=== PATIENT | male | born 1940 | race Caucasian/White ===

== ENCOUNTER 2019-10-23 04:28 | Emergency (ER) | payer OTHER, MEDICARE ==
[2019-10-23 04:43] VITALS: BP 149/77
[2019-10-23] MEDS ORDERED: CIPROFLOXACIN HCL/DEXAMETH OTIC DROP 7.5 ML AS ONE (05:31)
--- NOTE | 2019-10-23 05:41 | ER Document Report ---
HPI - HPI Pain Level: 2 Context: Patient is a 79-year-old male that comes emergency department for chief complaint of left ear pain. Symptoms started 2 days ago, he states it feels swollen and it is harder to hear out of than usual. He states that he does wear hearing aid in the same year. He denies this happening frequently. He denies drainage from the ear, headache, vomiting, fever, congestion, or any other complaints. - EENT EENT: REPORTS: Ear Pain <FREDY BRANDON - Last Filed: 10/23/19 06:29> <MELLY CURRIE IV - Last Filed: 10/23/19 06:38> - HPI Time Seen by Provider: 10/23/19 05:17 Past Medical History - General Information source: Patient - Social History Smoking Status: Never Smoker Frequency of alcohol use: None Drug Abuse: None Lives with: Family Family History: Reviewed & Not Pertinent Patient has homicidal ideation: No - Immunizations Immunizations up to date: Yes Hx Diphtheria, Pertussis, Tetanus Vaccination: Yes <FREDY BRANDON - Last Filed: 10/23/19 06:29> Vertical Provider Document - CONSTITUTIONAL General Appearance: WD/WN, No Apparent Distress - HEENT HEENT: Atraumatic, Normocephalic. negative: Normal ENT Exam - The right ear is unremarkable, nasal, sinus, and oral pharyngeal exams are unremarkable. Left ear shows obvious otitis externa with significant swelling of the ear canal and tragus tenderness. Mastoids are normal. No drainage, no concerning findings with the tympanic membranes, otherwise unremarkable. - NECK Neck: Normal Inspection - RESPIRATORY Respiratory: Breath Sounds Normal, No Respiratory Distress - CARDIOVASCULAR Cardiovascular: Regular Rate, Regular Rhythm - GI/ABDOMEN Gastrointestinal: Abdomen Soft, Abdomen Non-Tender. negative: Abdomen Tender - BACK Back: Normal Inspection - MUSCULOSKELETAL/EXTREMETIES Musculoskeletal/Extremeties: MAEW, FROM, Non-Tender - NEURO Level of Consciousness: Awake, Alert, Appropriate Motor/Sensory: No Motor Deficit, No Sensory Deficit - DERM Integumentary: Warm, Dry, No Rash <FREDY BRANDON - Last Filed: 10/23/19 06:29> Course - Re-evaluation Re-evalutation: Patient with notable left-sided otitis externa with significant swelling of the ear canal mastoids are normal, ENT exam is normal otherwise. No fever. No drainage. I placed an ear wick with Ciprodex, provided with Ciprodex for treatment, discussed care, follow-up, return precautions. Patient states appreciation and agreement. Stable and well-appearing at time of discharge. - Vital Signs Vital signs: Temp Pulse Resp BP Pulse Ox 98.6 F 69 18 149/77 H 96 10/23/19 04:48 10/23/19 04:41 10/23/19 04:41 10/23/19 04:41 10/23/19 04:41 <FREDY BRANDON - Last Filed: 10/23/19 06:29> - Vital Signs Vital signs: Temp Pulse Resp BP Pulse Ox 98.6 F 69 18 149/77 H 96 10/23/19 04:48 10/23/19 04:41 10/23/19 04:41 10/23/19 04:41 10/23/19 04:41 <MELLY CURRIE IV - Last Filed: 10/23/19 06:38> Discharge <FREDY BRANDON - Last Filed: 10/23/19 06:29> <MELLY CURRIE IV - Last Filed: 10/23/19 06:38> - Discharge Clinical Impression: Left ear pain Otitis externa Qualifiers: Otitis externa type: unspecified type Chronicity: acute Laterality: left Qualified Code(s): H60.502 - Unspecified acute noninfective otitis externa, left ear Condition: Stable Disposition: HOME, SELF-CARE Additional Instructions: Your evaluation shows otitis externa, inflammation/infection of the ear canal. Use the eardrops provided, 4 drops, twice a day, for [address] a wick, as the swelling of the canal goes down this should simply fall out on its own. Follow-up with primary care for additional management. Return if you worsen including swelling of the ear, developing fever, vomiting, severe headache, or any other concerning or worsening symptoms. Prescriptions: Ciprofloxacin HCl/Dexameth [Ciprodex Otic Suspension 7.5 ml Bottle] 4 drop BID #1 bottle Referrals: [facility] [Primary Care Provider] - Follow up as needed
== END 2019-10-23 05:56 | disposition home or self-care (01) ==
LOC: ER 04:28
DX: H60.502 Unspecified acute noninfective otitis externa, left ear (principal); H92.02 Otalgia, left ear; Z97.4 Presence of external hearing-aid
CPT/HCPCS: 99282; J3490